=== PATIENT | female | born 2000 | race Caucasian/White ===

== ENCOUNTER 2021-05-05 10:31 | Emergency (ER) | payer MEDICAID, SELFPAY ==
--- NOTE | ~2021-05-05 | US_ITS ---
US pelvic complete w TV DATE: 05/05/2021 12:28 INDICATION: Right lower quadrant and pelvic pain. History of ovarian cyst. TECHNIQUE: Real-time imaging via transabdominal and transvaginal approaches COMPARISON: None FINDINGS: The uterus measures 7.1 cm height, 3.4 cm AP and 3.6 cm transverse dimension. The central e ndometrial echo complex measures 6.8 mm AP dimension. Right ovary measures 4.2 x 2.6 x 2.2 cm, with vascular flow. The left ovary measures 3.1 x 2.2 x 1.7 cm, with vascular flow. Multiple bilateral ovarian follicles. There is a 12.5 x 11.4 mm left paraovarian cyst. There is moderate free fluid in the pelvic cul-de-sac and right adnexal area and to a lesser extent l eft adnexal area. Differential diagnosis further free fluid includes ruptured cyst, ruptured ectopic, pelvic inflammatory disease. IMPRESSION: Moderately prominent free fluid in the cul-de-sac, right adnexal area and to a lesser ext ent left adnexal area; differential diagnosis includes ruptured cyst, less likely ruptured ectopic or pelvic inflammatory disease Reviewed, dictated and finalized at [facility] Reviewed, dictated and finalized at [facility] IMPRESSION: Moderately prominent free fluid in the cul-de-sac, right adnexal ar ea and to a lesser extent left adnexal area; differential diagnosis includes ru ptured cyst, less likely ruptured ectopic or pelvic inflammatory disease
[2021-05-05 10:37] VITALS: BP 121/71; PULSE 76; RESP 14; TEMP 36.5; O2SAT 100
[2021-05-05 10:50] LABS: Basophils Percent Auto 0.5 % (0.2-1.2); Eosinophils Absolute Auto 0.2 K/mm3 (0-0.3); Eosinophils Percent Auto 2.2 % (0-4.4); Hematocrit 35.9 % (37.0-47.0); Hemoglobin 12.2 g/dL (12.0-15.0); Immature Granulocyte Absolute 0.02 K/mm3 (0.00-0.031); Immature Granulocyte Percent A 0.2 % (0-0.5); Lymphocytes Absolute Auto 1.97 K/mm3 (0.9-3.2); Lymphocytes Percent Auto 22.4 % (18.3-44.2); Mean Corpuscular Hemoglobin 30.3 pg (26-34); Mean Corpuscular Volume 89.1 fl (80-100); Mean Platelet Volume 8.5 fl (7.4-10.4); Monocytes Absolute Auto 0.5 K/mm3 (0.1-0.6); Monocytes Percent Auto 5.5 % (2.6-8.5); Neutrophils Absolute Auto 6.1 K/mm3 (1.3-6.7); Neutrophils Percent Auto 69.2 % (45.5-73.1); Platelet Count Result 295 k/mm3 (150-375); Red Blood Count 4.03 M/mm3 (4.2-5.4); Red Cell Distribution Width 12.8 % (11.5-14.5); White Blood Count 8.8 K/mm3 (4.5-10.0)
[2021-05-05 11:02] LABS: Alanine Aminotransferase 11 U/L (4-35); Albumin Level 4.4 g/dL (3.5-5.1); Alkaline Phosphatase 64 U/L (38-126); Anion Gap 5 mmol/L (8-16); Aspartate Amino Transferase 24 U/L (14-36); Bilirubin,Total 0.3 mg/dL (0.2-1.3); Blood Urea Nitrogen 4 mg/dL (7-17); Calcium 9.2 mg/dL (8.4-10.2); Carbon Dioxide 27 mmol/L (22-30); Chloride 104 mmol/L (98-107); Estimated CRCL calculation 104 ml/min; Estimated Glomerular Filt Rate > 60; Glucose 90 mg/dL (65-110); Lipase 62 U/L (23-300); Sodium 136 mmol/L (137-145)
[2021-05-05 11:27] LABS: Add Urine Microscopic? NO; Appearance Urine Clear (Clear); Bilirubin Urine Negative (Negative); Blood Urine Negative (Negative); Color Urine Straw (Yellow); Glucose Urine UA Negative (Negative); Ketones Urine Negative (Negative); Leukocyte Esterase Ur Negative LEU/UL (Negative); Nitrate Urine Negative (Negative); Protein Urine Negative (Negative); Specific Grav Ur 1.006 (1.001-1.035); Urobilinogen Urine Negative mg/dL (<2.0)
--- NOTE | 2021-05-05 11:53 | ED.ABDPAIN ---
HPI - Abdominal Pain General Chief Complaint: Abdominal Pain Stated Complaint: abd pain Time Seen by Provider: 05/05/21 11:18 Source: patient Mode of arrival: ambulatory Limitations: no limitations History of Present Illness HPI narrative: This is a 21-year-old female that presents to the emergency department for right lower quadrant abdominal/pelvic pain since this morning. Reports history of ovarian cyst. Reports the pain is crampy in nature. Denies fever, vomiting, dysuria, or hematuria. Related Data Home Medications Medication Instructions Recorded Confirmed No Home Medications 05/05/21 05/05/21 Allergies Allergy/AdvReac Type Severity Reaction Status Date / Time No Known Allergies Allergy Verified 05/05/21 11:48 Review of Systems Review of Systems: CONSTITUTIONAL: Denies fever GASTROINTESTINAL: Reports abdominal pain. Denies nausea, vomiting GENITOURINARY: Denies dysuria or hematuria. All systems reviewed & are unremarkable except as noted in HPI and below PMFSH Surgical History Surgical History (Updated 05/05/21 @ 11:55 by Kiera Horne PA-C) History of tonsillectomy Social History Social History (Updated 05/05/21 @ 11:55 by Kiera Horne PA-C) Smoking status: Current every day smoker Tobacco type: e-cigarettes/vaping Exam Narrative: GENERAL: Well-appearing, well-nourished, and in no acute distress. HEAD: Normocephalic, atraumatic. EYES: EOMI. CHEST: Clear to auscultation. No respiratory distress. No wheezes rales or rhonchi HEART: Regular rate and rhythm. No murmur heard. Normal peripheral pulses. ABDOMEN: Soft, nondistended, normal active bowel sounds. Tender to palpation in the right lower quadrant, without guarding. No CVA tenderness EXTREMITIES: Normal range of motion. No edema. SKIN: Warm, dry, no rash. NEURO: No focal deficits. Alert and oriented x3. PSYCH: Normal mood and affect Course Consultations Consultation #1: Spoke with Dr. Sharma about patient and workup who will follow up in clinic. Date: 05/05/21 Time: 13:22 Vital Signs Vital signs: Vital Signs Temperature 97.7 F 05/05/21 10:37 Pulse Rate 76 05/05/21 10:37 Respiratory Rate 14 05/05/21 10:37 Blood Pressure 121/71 05/05/21 10:37 Pulse Oximetry 100 05/05/21 10:37 Temperature 97.7 F 05/05/21 10:37 Pulse Rate 112 H 05/05/21 13:18 Respiratory Rate 18 05/05/21 13:18 Blood Pressure 103/62 05/05/21 13:18 Pulse Oximetry 99 05/05/21 13:18 MDM - Abdominal Pain MDM Narrative Medical decision making narrative: Patient presents to the emergency department for right lower quadrant abdominal/pelvic pain. She is afebrile and nontoxic-appearing. CBC is without leukocytosis. Hemoglobin is 12.2. Metabolic panel without concerning findings. UA is normal. Bedside test is negative. Pelvic ultrasound shows moderately prominent free fluid in the cul-de-sac, right adnexal area and to lesser extent left adnexal area, consistent with probable ruptured cyst. Patient's pain has improved since onset. She did not require any pain medication while in the ED. She is having no vaginal bleeding. No urinary symptoms. Reports she is monogamous with her girlfriend. Spoke with Dr. Sharma about patient and workup who will follow up in clinic. Patient is stable and felt appropriate for further outpatient evaluation. She was given warnings to return the ER Lab Data Attestation: I reviewed the patient's lab results. Result diagrams: 05/05/21 10:43 05/05/21 10:43 Labs: Lab Results 05/05/21 05/05/21 05/05/21 Range/Units 10:43 10:43 10:58 WBC 8.8 (4.5-10.0) K/mm3 RBC 4.03 L (4.2-5.4) M/mm3 Hgb 12.2 (12.0-15.0) g/dL Hct 35.9 L (37.0-47.0) % MCV 89.1 (80-100) fl MCH 30.3 (26-34) pg MCHC 34.0 (32-36) g/dl RDW 12.8 (11.5-14.5) % Plt Count 295 (150-375) k/mm3 MPV 8.5 (7.4-10.4) fl Immature Gran % (Auto) 0.2 (0-0
[2021-05-05 13:18] VITALS: BP 103/62; PULSE 112; RESP 18; O2SAT 99
== END 2021-05-05 13:50 | disposition home or self-care (01) ==
PROVIDERS: Emergency Provider Emergency Medicine
DX: N83.209 Unspecified ovarian cyst, unspecified side (principal); F17.290 Nicotine dependence, other tobacco product, uncomplicated
CPT/HCPCS: 36415; 76830; 76856; 80053; 81003; 81025; 83690; 85025; 99284

== ENCOUNTER 2024-04-11 09:58 | Emergency (ER) | payer OTHER, SELFPAY ==
[2024-04-11 10:05] VITALS: BP 113/66; PULSE 92; RESP 17; TEMP 36.8; O2SAT 100
[2024-04-11 10:25] LABS: BEDSIDEPREGUCG Negative (Negative)
[2024-04-11 10:27] LABS: Basophils Absolute Auto 0.1 K/mm3 (0.0-0.1); Basophils Percent Auto 0.8 % (0.2-1.2); Eosinophils Absolute Auto 0.1 K/mm3 (0-0.3); Eosinophils Percent Auto 1.7 % (0-4.4); Hematocrit 39.2 % (37.0-47.0); Hemoglobin 12.9 g/dL (12.0-15.0); Immature Granulocyte Absolute 0.02 K/mm3 (0.00-0.031); Immature Granulocyte Percent A 0.3 % (0-0.5); Lymphocytes Absolute Auto 1.99 K/mm3 (0.9-3.2); Lymphocytes Percent Auto 30.2 % (18.3-44.2); Mean Corpuscular HGB Conc 32.9 g/dl (32-36); Mean Corpuscular Hemoglobin 29.6 pg (26-34); Mean Corpuscular Volume 89.9 fl (80-100); Mean Platelet Volume 8.9 fl (7.4-10.4); Monocytes Absolute Auto 0.6 K/mm3 (0.1-0.6); Monocytes Percent Auto 9.1 % (2.6-8.5); Neutrophils Absolute Auto 3.8 K/mm3 (1.3-6.7); Neutrophils Percent Auto 57.9 % (45.5-73.1); Platelet Count Result 277 k/mm3 (150-375); Red Blood Count 4.36 M/mm3 (4.2-5.4); Red Cell Distribution Width 12.4 % (11.5-14.5); White Blood Count 6.6 K/mm3 (4.5-10.0)
[2024-04-11 10:37] LABS: Alanine Aminotransferase 17 U/L (6-35); Albumin Level 4.1 g/dL (3.5-5.1); Alkaline Phosphatase 47 U/L (38-126); Anion Gap 9 mmol/L (4-12); Aspartate Amino Transferase 28 U/L (14-36); Bilirubin,Total 0.2 mg/dL (0.2-1.3); Blood Urea Nitrogen 4 mg/dL (7-17); Calcium 8.8 mg/dL (8.4-10.2); Carbon Dioxide 27 mmol/L (22-30); Chloride 104 mmol/L (98-107); Estimated CRCL calculation 82 ml/min; Estimated Glomerular Filt Rate > 60; Glucose 105 mg/dL (65-110); Lipase 250 U/L (23-300); Potassium 3.6 mmol/L (3.4-5.0); Sodium 140 mmol/L (137-145)
[2024-04-11 10:39] LABS: Add Urine Microscopic? YES; Appearance Urine Cloudy (Clear); Bacteria Urine 2+ /hpf; Bilirubin Urine Negative (Negative); Blood Urine Negative (Negative); Color Urine Yellow (Yellow); Glucose Urine UA Negative (Negative); Ketones Urine Trace mg/dL (Negative); Leukocyte Esterase Ur 2+ LEU/UL (Negative); Need Manual Microscopic Reviewed; Nitrate Urine Negative (Negative); Protein Urine Trace mg/dL (Negative); Specific Grav Ur 1.017 (1.001-1.035); Squamous Epithelial Cell Urine Moderate /hpf (Few); Urobilinogen Urine 0.2 mg/dL (<2.0); pH Urine 6.5 (5.0-9.0)
--- NOTE | 2024-04-11 11:01 | ED.NAVMDI ---
HPI - Nausea/Vomiting/Diarrhea General Chief complaint: Nausea/Vomiting/Diarrhea Stated complaint: gi issues Time Seen by Provider: 04/11/24 10:13 Source: patient and RN notes reviewed Mode of arrival: ambulatory Limitations: no limitations History of Present Illness HPI Narrative: THis is a 24 year old female who presents for evaluation of abnormal stool. Patient states she developed watery diarrhea 2 weeks ago. she had associated nausea and vomiting at that time. She has not have vomiting in over 1 week. She was evaluated by her PCP last week and she was prescribed pepcid, cipro and flagyl. She reports her stool is no longer watery but it is not completely formed yet. She denies abdominal pain, rectal bleeding, bloody stools, fever. She has come today because her stool is not back to complete normal but she feels better. She also reports hemorrhoid pain but denies bleeding. Related Data Allergies Allergy/AdvReac Type Severity Reaction Status Date / Time No Known Allergies Allergy Verified 04/11/24 10:09 Review of Systems Constitutional: Constitutional: Denies fever(s) and Denies weakness Respiratory: Respiratory: Denies cough Gastrointestinal: Gastrointestinal: Denies abdominal pain, Denies bloating, Reports diarrhea and Reports nausea Genitourinary: Genitourinary: Denies hematuria, Denies nocturia and Denies dysuria PMFSH Past Medical History Medical History (Updated 04/11/24 @ 11:11 by Mary Kay Long MD) No significant medical problems Surgical History Surgical History History of tonsillectomy Family History Family History (System 01/09/23 @ 16:23 by Nathen Yung) Other Hypertension Social History Social History Smoking status: Current every day smoker Tobacco type: e-cigarettes/vaping Second hand tobacco smoke exposure: Yes Exam Const: General: no acute distress and alert Nutritional Appearance: well nourished Orientation/consciousness: patient oriented x3 HENMT: Head: normal to inspection Mouth: Yes Normal oral and palatal mucosa present, Yes lip normal and Yes moist mucous membranes Eyes: EOM: EOMs intact bilaterally Chest: Chest palpation & inspection: normal inspection of the chest Resp: Effort & Inspection: normal respiratory effort Auscultation: clear to auscultation bilaterally Cardio: Rate: regular rate Rhythm: regular rhythm Heart sounds: no murmurs GI: GI Palp: Yes Soft to palpation, No Tenderness to palpation present (GI), No Guarding due to palpation present (GI) and No Rigid due to palpation Auscultation: normal bowel sounds Back/Spine/Pelvis: Back: no CVA tenderness Skin: General skin exam: normal color Rashes: no rashes Neuro: General: patient oriented x3 and moves all extremities Cranial nerves: Yes Nystagmus not present Extrem: General: normal to inspection Psych: Mental Status: mental status grossly normal Affect: normal affect Attitude: cooperative Course Reevaluation(s) Reevaluation #1: I reviewed labs with patient. She is not having symptoms of UTI , this appears to be contaminated so will not prescribe additional antibiotcs. I discussed with her return precautions. Also talk about sitz baths, hemorrhoid tx, rehydration Date: 04/11/24 Time: 11:05 Vital Signs Vital signs: Vital Signs Temperature 98.2 F 04/11/24 10:05 Pulse Rate 92 04/11/24 10:05 Respiratory Rate 17 04/11/24 10:05 Blood Pressure 113/66 04/11/24 10:05 Pulse Oximetry 100 04/11/24 10:05 Oxygen Delivery Room Air 04/11/24 10:05 Temperature 97.9 F 04/11/24 11:31 Pulse Rate 86 04/11/24 11:31 Respiratory Rate 16 04/11/24 11:31 Blood Pressure 113/66 04/11/24 11:31 Pulse Oximetry 100 04/11/24 11:31 Oxygen Delivery Room Air 04/11/24 10:05 MDM - Nausea/Vomiting/Diarrhea Differential Diagnosis Differential diagnosis: Likely traveler's diarrhea, food poisoning, gastroenteritis and dehydration Medical Records Attestation: I reviewed the patient's medical records. Lab Data Attestation: I reviewed the patient's lab results. 04/11/24 10:20 04/11/24 10:20 Labs: Lab Results 04/11/24 04/11/24 Range/Units 10:20 10:23 WBC 6.6 (4.5-10.0) K/mm3 RBC 4.36 (4.2-5.4) M/mm3 Hgb 12.9 (12.0-15.0) g/dL Hct 39.2 (37.0-47.0) % MCV 89.9 (80-100) fl MCH 29.6 (26-34) pg MCHC 32.9 (32-36) g/dl RDW 12.4 (11.5-14.5) % Plt Count 277 (150-375) k/mm3 MPV 8.9 (7.4-10.4) fl Immature Gran % (Auto) 0.3 (0-0.5) % Neut % (Auto) 57.9 (45.5-73.1) % Lymph % (Auto) 30.2 (18.3-44.2) % [place] % (Auto) 9.1 H (2.6-8.5) % Eos % (Auto) 1.7 (0-4.4) % Baso % (Auto) 0.8 (0.2-1.2) % Lymph # (Auto) 1.99 (0.9-3.2) K/mm3 [place] # (Auto) 0.6 (0.1-0.6) K/mm3 Eos # (Auto) 0.1 (0-0.3) K/mm3 Baso # (Auto) 0.1 (0.0-0.1) K/mm3 Abs Immat Gran (auto) 0.02 (0.00-0.031) K/mm3 Absolute Neuts (auto) 3.8 (1.3-6.7) K/mm3 Absolute Nucleated RBC 0.000 (0.0-0.012) K/mm3 Nucleated RBC % 0.0 (0.0-0.2) % Sodium 140 (137-145) mmol/L Potassium 3.6 (3.4-5.0) mmol/L Chloride 104 (98-107) mmol/L Carbon Dioxide 27 (22-30) mmol/L Anion Gap 9 (4-12) mmol/L BUN 4 L (7-17) mg/dL Creatinine 0.80 (0.7-1.0) mg/dL Estim Creat Clear Calc 82 ml/min Estimated GFR > 60 (59 - ) Glucose 105 (65-110) mg/dL Calcium 8.8 (8.4-10.2) mg/dL Total Bilirubin 0.2 (0.2-1.3) mg/dL AST 28 (14-36) U/L ALT 17 (6-35) U/L Alkaline Phosphatase 47 (38-126) U/L Total Protein 7.0 (6.3-8.2) g/dL Albumin 4.1 (3.5-5.1) g/dL Lipase 250 (23-300) U/L Urine Color Yellow (Yellow) Urine Appearance Cloudy H (Clear) Urine pH 6.5 (5.0-9.0) Ur Specific [place] 1.017 (1.001-1.035) Urine Protein Trace (Negative) mg/dL Urine Glucose (UA) Negative (Negative) mg/dL Urine Ketones Trace H (Negative) mg/dL Ur Blood (Man) Negative (Negative) Urine Nitrate Negative (Negative) Urine Bilirubin Negative (Negative) Urine Urobilinogen 0.2 (<2.0) mg/dL Add Ur Microanalysis Reviewed Leukocyte Esterase Rfl 2+ H (Negative) CONNIE/UL Urine RBC 3-5 H (0-2) /hpf Urine WBC 11-20 H (0-3) /hpf Ur Squamous Epith Cells Moderate (Few) /hpf Urine Bacteria 2+ H /hpf Urine Casts 6-10 POC Urine HCG, Qual Negative (Negative) Discharge Plan Discharge Clinical Impression: Gastroenteritis Patient Disposition: Home, Self-Care Condition: Stable Instructions: Antibiotic Form, Hemorrhoids (ED), Acute Diarrhea (ED) Prescriptions: New hydrocortisone [Anusol-HC] 2.5 % cream with perineal applicator 1 applic RECTAL DAILY PRN (Reason: hemorrhoids) Qty: 30 0RF Follow-up/Referrals: Terrence Bajwa MD [Physician] - PHYSICIAN,SAIL REPAIR PERSON [Primary Care Provider] -
[2024-04-11 11:31] VITALS: BP 113/66; PULSE 86; RESP 16; TEMP 36.6; O2SAT 100
== END 2024-04-11 11:33 | disposition home or self-care (01) ==
PROVIDERS: Emergency Medicine; Emergency Provider General Practice
DX: K52.9 Noninfective gastroenteritis and colitis, unspecified (principal); F17.290 Nicotine dependence, other tobacco product, uncomplicated
CPT/HCPCS: 36415; 80053; 81001; 81025; 83690; 85025; 87086; 99283

== ENCOUNTER 2024-08-08 09:54 | Emergency (ER) | payer OTHER, SELFPAY ==
[2024-08-08 10:04] VITALS: BP 112/70; PULSE 100; RESP 16; TEMP 36.8; O2SAT 100
--- NOTE | 2024-08-08 10:19 | ED_ITS ---
HPI - URI/Sore Throat General Chief Complaint: Upper Respiratory Infection Stated Complaint: SORE THROAT/BUMPS IN THROAT/COUGH Time Seen by Provider: 08/08/24 10:16 Source: patient, RN notes reviewed and old records reviewed Mode of arrival: ambulatory Limitations: no limitations History of Present Illness HPI Narrative: 24year old female presents to [facility] care with complaints of 4-5 days of scratchy sore throat and dry cough. Patient reports that she has not had any fevers, chills or any body aches. Patient reports that she has been feeling very fatigued lately and has some soreness in the left side of her neck and her gland has been swollen. Patient reports that she has taken some Tylenol for her discomfort MD elicited complaint: cough and sore throat Pertinent past history: other (Tonsillectomy) Onset (ago): day(s) (4) Severity: mild Able to tolerate fluids by mouth: Yes Treatments prior to arrival: acetaminophen Related Data Home Medications ?Medication ?Instructions ?Recorded ?Confirmed ?Last Taken ?Type buspirone 7.5 mg tablet 7.5 mg PO DAILY 08/08/24 08/08/24 Unknown History Allergies Allergy/AdvReac Type Severity Reaction Status Date / Time No Known Allergies Allergy Verified 08/08/24 10:01 Review of Systems Review of Systems: CONSTITUTIONAL: reports some malaise, no chills, sweats, or fever.states fatigue EYES: Denies visual changes, redness, or discharge. ENT: Reports rhinorrhea, congestion,no sinus pain,no otalgia and positive for sore throat. CARDIOVASCULAR: Denies chest pain, palpitations, or edema. RESPIRATORY: Reports dry cough.? Denies dyspnea. GASTROINTESTINAL: Denies abdominal pain, nausea, vomiting, diarrhea SKIN: Denies rash or itching. MUSCULOSKELETAL: Denies myalgia. NEUROLOGIC: Denies headache. All systems reviewed & are unremarkable except as noted in HPI and below PMFSH Past Medical History Medical History (Updated 08/10/24 @ 10:19 by Yoly Montgomery NP) Ovarian cyst Anxiety Surgical History Surgical History History of tonsillectomy Family History Family History Other Hypertension Social History Social History Smoking status: Current every day smoker Tobacco type: e-cigarettes/vaping Second hand tobacco smoke exposure: Yes Comments At time of signature, agree with nursing past medical, surgical, social and family history. There is no relevant family history pertinent to the presenting complaint Exam Narrative: GENERAL: Well-appearing, well-nourished, and in no acute distress. HEAD: Normocephalic EYES: PERRLA, conjunctivae clear ENT: Nares clear, turbinates edematous and erythematous, clear discharge. Mucous membranes moist. TM pearly marie with dull light reflex bilaterally; no tragal tenderness. Oropharynx erythematous without lesions. Tonsils not present and throat without exudate, no drooling, no hoarseness, no trismus, uvula midline some pos nasal drainage. NECK: Supple. left lymphadenopathy CHEST: Clear to auscultation, breath sounds equal. No wheezing, rhonchi, rales, or stridor. No respiratory distress, speaks in full sentences.dry cough SAO2 100% on room air HEART: Regular rate and rhythm. No murmur heard. SKIN: Warm, dry, no rash. NEURO: Alert and oriented x3. PSYCH: Normal mood and affect Course Course Emergency Course: Patient is aware of diagnosis, understands and agrees to treatment plan.? Anticipatory guidance given.? Patient agrees to follow-up as directed and is aware of reasons to seek care at the emergency department. Portions of this record may have been created with voice recognition software Level of Care: Express Care Visit Vital Signs Vital signs: Vital Signs Temperature 36.8 C 08/08/24 10:04 Pulse Rate 100 08/08/24 10:04 Respiratory Rate 16 08/08/24 10:04 Blood Pressure 112/70 08/08/24 10:04 Pulse Oximetry 100 08/08/24 10:04 Temperature 36.8 C 08/08/24 10:04 Pulse Rate 100 08/08/24 10:04 Respiratory Rate 16 08/08/24 10:04 Blood Pressure 112/70 08/08/24 10:04 Pulse Oximetry 100 08/08/24 10:04 Reviewed MDM - URI/Sore Throat MDM Narrative Medical decision making narrative: Differential diagnosis considered: [place] virus, strep pharyngitis, allergic rhinitis, upper respiratory tract infection, sinusitis, rhinosinusitis, nasopharyngitis. viral pharyngitis, otitis media, otitis externa, pneumonia, bronchitis, viral cough syndrome, viral syndrome, and influenza.? Exam findings show no acute concerns or changes; patient is non-toxic appearing and is in no distress.? Patient is appropriate for outpatient treatment and follow-up. Differential Diagnosis Differential diagnosis: Likely upper respiratory infection, viral infection, pharyngitis and other (strep pharyngitis, mono) Medical Records Attestation: I reviewed the patient's medical records. Lab Data Attestation: I reviewed the patient's lab results. Lab results narrative: strep screen negative culture sent, [place] screen negative Labs: Lab Results 08/08/24 08/08/24 Range/Units 10:22 11:20 POC Monoscreen Negative (Negative) POC Grp A Strep Screen Negative (Negative) Critical Care Time Critical Care Time Critical Care Time: No Discharge Plan Discharge Clinical Impression: Upper respiratory infection Qualifiers: URI type: unspecified URI Qualified Code(s): J06.9 - Acute upper respiratory infection, unspecified Pharyngitis Qualifiers: Pharyngitis/tonsillitis etiology: unspecified etiology Qualified Code(s): J02.9 - Acute pharyngitis, unspecified Patient Disposition: Home, Self-Care Condition: Stable Instructions: Pharyngitis (ED), Upper Respiratory Infection (ED) Additional Instructions: Increase fluids especially juices and water [id number] cough and cold medicine of your choice for your symptoms Zyrtec Claritin or Mera daily may include plain Sudafed Tylenol or ibuprofen for any fever pain Mucinex for cough and congestion must drink plenty of water heat to the face 20-30 minutes 4-6 times a day for pain Salt water gargles, throat lozenges or throat sprays as desired Your strep test today was negative. A throat culture will be sent to the laboratory for further testing. IF the test is positive, you will receive a phone call within 48 hours and an appropriate antibiotic will be initiated at that time. Patient Language: [place] Prescriptions: No Action buspirone 7.5 mg tablet 7.5 mg PO DAILY Follow-up/Referrals: Alvaro,MD Malik [Primary Care Provider] - Time of Disposition: 11:40 Quality [place] Coma Scale Eyes: Open Verbal: Oriented and Alert Motor: Follows Commands [place] Coma Total Score: 15
[2024-08-08 10:24] LABS: EDSTREPNEGPOS1 Negative (Negative)
[2024-08-08 11:22] LABS: EDMONONEGPOS Negative (Negative)
== END 2024-08-08 11:44 | disposition home or self-care (01) ==
PROVIDERS: Emergency Provider Registered Nurse; PCP Family Medicine
DX: J02.0 Streptococcal pharyngitis (principal); F17.290 Nicotine dependence, other tobacco product, uncomplicated; F41.9 Anxiety disorder, unspecified
CPT/HCPCS: 36416; 86308; 87081; 87880; 99213; G0463